=== PATIENT | female | born 1995 | race African-American/Black ===

== ENCOUNTER 2023-02-06 19:04 | Emergency (ER) | payer BC, OTHER ==
[2023-02-06 20:23] LABS: SARS-CoV-2 NAA Rapid Test Not Detected (NotDetected)
== END 2023-02-06 21:46 | disposition home or self-care (01) ==
LOC: CSHERS 19:04
DX: B34.9 Viral infection, unspecified (principal); Z20.822 Contact with and (suspected) exposure to COVID-19
CPT/HCPCS: 99283